=== PATIENT | female | born 1965 | race African-American/Black ===

== ENCOUNTER 2016-09-12 22:09 | Emergency (ER) | payer MEDICARE, BC ==
[2016-09-12 22:41] LABS: ASCORBIC ACID (UR NOT ORDER) NEG (NEG); BILIRUBIN, URINE NEGATIVE (NEG); ER URINALYSIS TAT 0 Hrs 10 Mins; KETONE, URINE NEGATIVE (NEG); LEUKOCYTE ESTERASE(NOT OR NEG (NEG); NITRITE (URINE) NEG (NEG); WBC (NOT ORDERED) (RFLEX) 2 (0-5)
[2016-09-12 22:42] LABS: BASOPHILS 0.1 %; BASOPHILS ABSOLUTE 0.01 10/3/uL (0.0-0.16); EOSINOPHILS 4.4 %; EOSINOPHILS ABSOLUTE 0.33 10/3/uL (0.0-0.53); ER CBC TAT 0 Hrs 11 Mins; HEMATOCRIT 38.1 % (36.0-48.0); IMMATURE GRANULOCYTES 0.1 %; IMMATURE GRANULOCYTES ABSOLUTE 0.01 10/3/uL (0.0-0.11); LYMPHOCYTES 36.8 %; LYMPHOCYTES ABSOLUTE 2.76 10/3/uL (0.67-4.30); MEAN CORPUS HGB CONC 34.1 g/dL (32.0-36.0); MEAN CORPUSCULAR HEMOGLOB 31.5 pg (26.0-34.0); MEAN CORPUSCULAR VOLUME 92.3 fL (80-100); MEAN PLATELET VOLUME 8.9 fL (9.2-13.0); MONOCYTES 5.3 %; NEUTROPHILS 53.3 %; NEUTROPHILS ABSOLUTE 3.99 10/3/uL (2.02-8.40); PLATELET COUNT 316 10/3/uL (150-400); RED CELL COUNT 4.13 10/6/uL (4.0-5.6); WHITE BLOOD CELLS 7.5 10/3/uL (4.5-10.5)
[2016-09-12 22:43] LABS: MANUAL DIFF NO %
[2016-09-12 22:53] LABS: ALBUMIN 3.8 G/DL (3.5-5.0); CHLORIDE, SERUM 103 MMOL/L (96-112); CO2 (CARBON DIOXIDE) 29 MMOL/L (24-34); CREATININE 0.76 MG/DL (0.55-1.02); GFR AFRICAN AMERICAN 106 ML/MIN (>=60); GFR NON AFRICAN AMERICAN 91 ML/MIN (>=60); GLOBULIN 3.9 G/DL (2.5-4.1); SGOT(AST) 11 U/L (5-40); SGPT(ALT) 34 U/L (5-65); SODIUM, SERUM 142 MMOL/L (135-148); TOTAL BILIRUBIN 0.3 MG/DL (0-1.2); TOTAL PROTEIN 7.7 G/DL (6.0-8.5)
[2016-09-12 22:54] LABS: ALKALINE PHOSPHATASE 90 U/L (45-117); BUN (BLOOD UREA NITROGEN) 15 MG/DL (6-23); GLUCOSE, SERUM 118 MG/DL (60-99); POTASSIUM, SERUM 3.2 MMOL/L (3.5-5.3)
[2017-01-26] MEDS ORDERED: PRINZIDE1 TA1 PO (08:55)
[2017-01-26] MEDS ORDERED: PRILOSEC40 MG PO (08:55)
[2017-01-26] MEDS ORDERED: PROBIOTIC PO (08:56)
[2017-01-26] MEDS ORDERED: PERCOCET 10/3251 TAB PO (08:56)
[2017-01-26] MEDS ORDERED: NEUR600 PO (08:57)
[2017-01-26] MEDS ORDERED: MIRALAX POWDER1 PKT PO (08:58)
[2017-01-26] MEDS ORDERED: MULTIPLE VIT PO (08:58)
[2017-01-26] MEDS ORDERED: PRAVAC PO (08:59)
[2017-01-26] MEDS ORDERED: OSTEO BI-FLEX1 EACH PO (10:43)
[2017-01-26] MEDS ORDERED: 8 HOUR650 MG PO (10:44)
== END 2016-09-13 02:49 | disposition home or self-care (01) ==
LOC: ER 22:09
PROVIDERS: Emergency Medicine
DX: K52.1 Toxic gastroenteritis and colitis (principal); T50.995A Adverse effect of other drugs, medicaments and biological substances, initial encounter; Z88.5 Allergy status to narcotic agent
CPT/HCPCS: 74022; 80053; 81001; 83690; 85025; 99284; A9270-GY